=== PATIENT | female | born 1935 | race Caucasian/White ===

== ENCOUNTER 2020-12-28 17:08 | Emergency (ER) | payer OTHER ==
[2020-12-28] MEDS ORDERED: cefTRIAXone FOR IV USE 1,000 MG in WATER (STERILE) FOR INJECTION 10 ML IV STA (17:23)
[2020-12-28] MEDS ORDERED: NS (IVPB) 250 ML IV STA (17:23)
[2020-12-28] MEDS ORDERED: POTASSIUM CL 10MEQ/50ML IVPB 50 ML IV STA (17:23)
--- NOTE | 2020-12-28 17:30 | ED General ---
General Stated Complaint: HIGH POTASSIUM Source of Information: Patient, EMS, Family, Old Records History of Present Illness Date Seen by Provider: Dec 28, 2020 Time Seen by Provider: 17:08 Initial Comments Patient is an 85-year-old female brought in by EMS for complaints of hypokalemia and urinary tract infection found on lab work done earlier today. She has been having increased weakness and difficulty getting around for the last several days. She has not been drinking as well. She does have a history of Parkinson's and some dementia. She lives with her and they have property at [facility] but also have a home in [place]. When the lab work that was done earlier today showed a low potassium and UTI her regular provider and [place] who had ordered the test contacted the family and advised that she needed to be taken to the hospital to be admitted. The family had called EMS and she was brought here to the stand-alone emergency department in [facility]. There was some misunderstanding about the capabilities of the stand-alone emergency department and the level of care that the patient requires. When the family understood that the patient needed to be admitted for treatment and would have to stay in the hospital for at least a day or 2 they requested to go back north to [facility] rather than go to a [facility] where she has never been. Allergies and Home Medications Allergies Coded Allergies: No Known Drug Allergies (Unverified , 12/28/20) Patient Home Medication List Home Medication List Reviewed: Yes Review of Systems Review of Systems Constitutional: chills, fever, malaise, weakness (Generalized) EENTM: No epistaxis, No nose congestion Respiratory: No cough Cardiovascular: edema Gastrointestinal: loss of appetite Genitourinary: frequency Musculoskeletal: joint pain (Generalized joint pain but worse in the right shoulder) Skin: dryness Psychiatric/Neurological: Weakness (General weakness and difficulty with ambulation from her Parkinson's, worse recently in the last several days.) Past Mnjsgtx-Nczegn-Iuueip Hx Past Med/Social Hx: Reviewed Nursing Past Med/Soc Hx Past Medical History Neurological: Yes Parkinson's Disease Physical Exam Vital Signs Vital Signs - First Documented 12/28/20 17:10 Temp 36.0 Pulse 87 Resp 16 B/P (MAP) 156/93 (114) Pulse Ox 96 O2 Delivery Room Air Capillary Refill : Height, Weight, BMI Height: '" Weight: lbs. oz. kg; BMI Method: General Appearance: Chronically ill, Obese HEENT: Pharynx Normal Neck: Supple Respiratory: Chest Non Tender, No Accessory Muscle Use, No Respiratory D istress, Decreased Breath Sounds Cardiovascular: Extra Beats Gastrointestinal: No Pulsatile Mass, Non Tender, Soft Rectal: Deferred Extremity: Normal Capillary Refill, Pedal Edema Neurologic/Psychiatric: Alert, Oriented x3 Skin: Warm/Dry Focused Exam Lactate Level 12/28/20 17:40: Lactic Acid Level 1.44 Lactic Acid Level Laboratory Tests Test 12/28/20 17:40 Lactic Acid Level 1.44 MMOL/L (0.50-2.00) Progress/Results/Core Measures Suspected Sepsis SIRS Temperature: Pulse: Respiratory Rate: Blood Pressure / Mean: 12/28/20 17:40: Lactic Acid Level 1.44 Laboratory Tests 12/28/20 17:40: Creatinine 0.78 Results/Orders Lab Results Laboratory Tests Test 12/28/20 17:40 Range/Units Sodium Level 132 L 135-145 MMOL/L Potassium Level 2.3 *L 3.6-5.0 MMOL/L Chloride Level 92 L 98-107 MMOL/L Carbon Dioxide Level 28 21-32 MMOL/L Anion Gap 12 5-14 MMOL/L Blood Urea Nitrogen 22 H 7-18 MG/DL Creatinine 0.78 0.60-1.30 MG/DL Estimat Glomerular Filtration Rate > 60 BUN/Creatinine Ratio 28 Glucose Level 145 H 70-105 MG/DL Lactic Acid Level 1.44 0.50-2.00 MMOL/L Calcium Level 8.5 8.5-10.1 MG/DL My Orders Orders - MAYA BACH MD Blood Culture (12/28/20 17:23) Ed Iv/Invasive Line Start (12/28/20 17:23) Lactic Acid Analyzer (12/28/20 17:23) Ekg Tracing (12/28/20 17:23) Monitor-Rhythm Ecg Trace Only (12/28/20 17:23) Potassium Cl 10meq/50ml Ivpb (Kcl 10 Meq (12/28/20 17:23) Ns (Ivpb) (Sodium Chloride 0.9%) (12/28/20 17:23) Ceftriaxone For Iv Use (Rocephin For I (12/28/20 17:23) Basic Metabolic Panel (12/28/20 17:31) Vital Signs/I&O 12/28/20 12/28/20 17:10 18:54 Temp 36.0 36.0 Pulse 87 92 Resp 16 16 B/P (MAP) 156/93 (114) 121/54 (114) Pulse Ox 96 98 O2 Delivery Room Air Capillary Refill : Progress Note #1: Progress Note Patient had labs done earlier today showing potassium of 2.3 and urinalysis with UTI. She was advised by her primary provider out of [place] to get to the hospital for admission to get IV potassium and treatment for the UTI since she was having so much weakness. The family had called EMS and was brought here to the emergency department. There was some misunderstanding that this was a hospital where she can be admitted and treated. When advised that she would need to be transferred to have had admission to the hospital for IV potassium as well as IV antibiotics for the urinary tract infection to help with her strength and oral intake the family requested [facility] since she has been there before and has healthcare providers in that area. As she already had labs from 1 PM today I went ahead and called [facility] access to initiate the transfer while working on getting IV access, lab repeat for the chemistry, blood cultures with a lactic acid and initiating potassium 10 mEq over an hour with a 250 mL bolus as well as a dose of Rocephin once the cultures were obtained. At 5:31 PM I spoke with the [facility] transfer center about the patient. At 1740 they called back and at 1743 they accepted on behalf of Dr. Santacruz for transfer to [facility]. Progress Note #2: Progress Note Repeat Chem 7 shows potassium is still 2.3 and Lactic acid is normal at 1.44. Pt has irregular rhythm and rate on tracing and telemetry monitoring with rate of 78 on ECG. She remains stable within my facilities capabilities while waiting on transfer. ECG Initial ECG Impression Date: Dec 28, 2020 Initial ECG Impression Time: 17:58 Initial ECG Rate: 78 Initial ECG Comparisson: No Previous ECG Available Comment Irregular rhythm with pauses. Heart rate 78 bpm with a OH interval of 66 ms. Intraventricular conduction delay with possible atypical left bundle branch block. Short OH interval. QT interval 435 ms with a QTc interval 496 ms. There is no prior tracing available for comparison. There is no acute ST elevation. Departure Impression Primary Impression: Hypokalemia Additional Impressions: Cystitis with hematuria General weakness Disposition: 02 XFER SHT-TRM HOSP Condition: Stable Transfer Transfer Reason: Patient preference Time Spoke to Accepting Phy: 17:43 Transfer Progress Notes I spoke with transfer center for [facility] transfer center and they accepted on behalf of Dr. Santacruz for pt to come to [facility] Transfer Facility: [facility] Method of Transfer: EMS MAYA BACH MD Dec 28, 2020 17:30
[2020-12-28 18:07] LABS: SODIUM 132 MMOL/L (135-145)
[2020-12-28 18:08] LABS: CARBON DIOXIDE 28 MMOL/L (21-32); CHLORIDE 92 MMOL/L (98-107); POTASSIUM 2.3 MMOL/L (3.6-5.0)
[2020-12-28 18:09] LABS: BUN/CREATININE RATIO 28; CALCIUM 8.5 MG/DL (8.5-10.1); CREATININE SERUM 0.78 MG/DL (0.60-1.30); GFR ESTIMATED > 60; GLUCOSE 145 MG/DL (70-105)
[2020-12-28 18:54] VITALS: BP 121/54
== END 2020-12-28 18:54 | disposition short-term general hospital (02) ==
LOC: EDUNIT# 17:08 → ER FS 17:09
DX: E87.6 Hypokalemia (principal); N30.01 Acute cystitis with hematuria; R53.1 Weakness; R60.0 Localized edema; E66.9 Obesity, unspecified; R63.0 Anorexia; M25.511 Pain in right shoulder; L85.3 Xerosis cutis; G20 Parkinson's disease; F03.90 Unspecified dementia, unspecified severity, without behavioral disturbance, psychotic disturbance, mood disturbance, and anxiety
CPT/HCPCS: 36415; 80048; 83605; 87040; 93005; 93041

== ENCOUNTER → 2020-12-28 | Outpatient (CLI) | payer OTHER ==
[2020-12-28 13:56] LABS: WHITE BLOOD COUNT 8.7 10^3/uL (4.3-11.0)
[2020-12-28 13:57] LABS: BASOPHILS # (AUTO) 0.1 10^3/uL (0.0-0.1); BASOPHILS % (AUTO) 1 % (0-10); EOSINOPHILS # (AUTO) 0.2 10^3/uL (0.0-0.3); EOSINOPHILS % (AUTO) 2 % (0-10); HEMATOCRIT 36 % (35-52); HEMOGLOBIN 12.1 G/DL (11.5-16.0); LYMPHOCYTES % (AUTO) 12 % (12-44); MEAN CORPUSCULAR HEMOGLOBIN 31 PG (25-34); MEAN CORPUSCULAR HGB CONC 33 G/DL (32-36); MEAN CORPUSCULAR VOLUME 92 FL (80-99); MEAN PLATELET VOLUME 12.9 FL (7.4-10.4); MONOCYTES # (AUTO) 0.9 X 10^3 (0.0-1.0); MONOCYTES % (AUTO) 11 % (0-12); NEUTROPHILS # (AUTO) 6.5 X 10^3 (1.8-7.8); NEUTROPHILS % (AUTO) 74 % (42-75); PLATELET COUNT 165 10^3/uL (130-400)
[2020-12-28 13:59] LABS: BILIRUBIN,URINE NEGATIVE (NEGATIVE); CLARITY,URINE CLOUDY; COLOR,URINE YELLOW; GLUCOSE, URINE (UA) NEGATIVE (NEGATIVE); KETONES,URINE NEGATIVE (NEGATIVE); LEUKOCYTE ESTERASE ,URINE 3+ (NEGATIVE); NITRITE,URINE NEGATIVE (NEGATIVE); PH,URINE 6.5 (5-9); PROTEIN,URINE NEGATIVE (NEGATIVE)
[2020-12-28 14:03] LABS: BACTERIA,URINE LARGE /HPF; WBC,URINE >100 /HPF
[2020-12-28 14:46] LABS: ALANINE AMINOTRANSFERASE 5 U/L (0-55); ALBUMIN 3.7 GM/DL (3.2-4.5); ALKALINE PHOSPHATASE 79 U/L (40-136); BILIRUBIN,TOTAL 0.7 MG/DL (0.1-1.0); BUN/CREATININE RATIO 27; CALCIUM 8.3 MG/DL (8.5-10.1); CARBON DIOXIDE 25 MMOL/L (21-32); CHLORIDE 91 MMOL/L (98-107); CREATININE SERUM 0.83 MG/DL (0.60-1.30); GFR ESTIMATED > 60; GLUCOSE 117 MG/DL (70-105); MAGNESIUM 1.3 MG/DL (1.6-2.4); SODIUM 129 MMOL/L (135-145); TOTAL PROTEIN 6.4 GM/DL (6.4-8.2)
[2020-12-28 14:52] LABS: POTASSIUM 2.3 MMOL/L (3.6-5.0)
[2020-12-28 21:23] LABS: FREE T4 (FREE THYROXINE) 1.18 NG/DL (0.70-1.48)
== END ==
LOC: LAB FS 12:50
DX: G20 Parkinson's disease (principal); R79.89 Other specified abnormal findings of blood chemistry
CPT/HCPCS: 36415; 80053; 81000; 82306; 82607; 82746; 83036; 83735; 84436; 84439; 84443; 85025; 87077; 87088; 87186